=== PATIENT | male | born 1955 | race Caucasian/White ===

== ENCOUNTER 2025-01-05 03:05 | Emergency (ER) | payer MEDICARE, MEDICAID, SELFPAY ==
[2025-01-05 03:06] VITALS: BMI 22.9
[2025-01-05 03:09] VITALS: BP 177/96; PULSE 81; RESP 20; TEMP 37.1; O2SAT 97
--- NOTE | 2025-01-05 04:03 | PD.EDMALE ---
ED Male Genitalurinary RME/HPI General Chief complaint: Urogenital-Male Stated complaint: HASNT URINATED IN 6 HRS Time Seen by Provider: 01/05/25 03:38 Arrival date/time: 01/05/25 03:05 This is a case of 69-year-old male with history of BPH and urinary retention came in in the emergency room due to unable to urinate for 6 hours no other symptoms noted patient also needs medication refill of his Flomax for your BPH Limitations: no limitations Related Data Home Medications ?Medication ?Instructions ?Recorded ?Confirmed lisinopril 20 mg tablet 20 mg PO QDAY #0 tabs 09/20/15 06/19/22 aspirin 81 mg tablet,delayed 81 mg PO QDAY 11/13/19 06/19/22 release pravastatin 40 mg tablet 40 mg PO QDAY 11/13/19 06/19/22 (Pravachol) tamsulosin 0.4 mg capsule (Flomax) 0.4 mg PO HS 05/27/20 06/19/22 Previous Rx's ?Medication ?Instructions ?Recorded tamsulosin 0.4 mg capsule (Flomax) 0.4 mg PO QDAY #30 caps 01/05/25 Allergies Allergy/AdvReac Type Severity Reaction Status Date / Time No Known Allergies Allergy Verified 06/19/22 10:27 Review of Systems Review of Systems Systems Reviewed: All systems reviewed, normal except as documented Constitutional Constitutional: Reports system reviewed and no additional complaints, except as documented and Reports as per HPI Cardiovascular Cardiovascular: Reports system reviewed and no additional complaints, except as documented and Reports as per HPI Respiratory Respiratory: Reports system reviewed and no additional complaints, except as documented and Reports as per HPI Gastrointestinal Gastrointestinal: Reports system reviewed and no additional complaints, except as documented and Reports as per HPI Genitourinary Genitourinary: Reports system reviewed and no additional complaints, except as documented and Reports as per HPI Musculoskeletal Musculoskeletal: Reports system reviewed and no additional complaints, except as documented and Reports as per HPI Neurologic Neurologic: Reports system reviewed and no additional complaints, except as documented and Reports as per HPI Past Medical History Past Medical History NEUROLOGIC: Positive Neurological Disorders and Cerebrovascular Accident (2007); Negative Seizures CARDIAC: Positive Cardiac Disorders, Hypercholesterolemia and Hypertension; Negative Congestive Heart Failure RESPIRATORY: Negative Chronic Obstructive Pulmonary Disease (COPD) GASTROINTESTINAL: Negative Gastrointestinal Disorders GENITOURINARY: Positive Genitourinary Disorders, Kidney Stones and Benign Prostatic Hyperplasia; Negative Renal Disease MUSCULOSKELETAL: Negative Musculoskeletal Disorders ENDOCRINE: Negative Endocrine Disorders, Diabetes Mellitus Type 1 or Diabetes Mellitus Type 2 HEMATOLOGIC: Negative Blood Disorders OTHER HISTORY: Negative Hospitalization (stroke), Autoimmune Disease, Blood Transfusions, Blood Transfusion Reaction, Anesthesia Reactions, MRSA or Cancer Family History FAMILY HISTORY: Positive Family Cardiac Disorders (Father had heart attack); Negative Family Psychiatric Problems, Family Respiratory Disorders, Family Gastrointestinal Problems, Family Cancer, Family Surgery or Family Anesthesia Reaction Surgical History SURGICAL: Positive Abdominal Surgery; Negative Cardiac Surgery, Endocrine Surgery, Ear Surgery or Joint Replacement Social History SMOKING STATUS: Never smoker ED Exam General Limitations: Present no limitations General appearance: Present alert, in no apparent distress and other (Patient is awake alert oriented not in distress nontoxic looking well-hydrated 20) Head Head exam: Present atraumatic, normocephalic and normal inspection Eye Eye exam: Present normal appearance, PERRL, EOMI and other (PERRL EOM intact normal conjunctiva no papillae) ENT ENT exam: Present normal exam, normal oropharynx and mucous membranes moist Neck Neck exam: Present normal inspection, full ROM and trachea midline Chest Chest inspection: Present normal inspection and symmetric chest wall rise; Absent tenderness Respiratory Respiratory exam: Present normal lung sounds bilaterally; Absent respiratory distress, wheezes, stridor, accessory muscle use or prolonged expiratory phase Cardiovascular Cardiovascular exam: Present regular rate, normal rhythm and normal heart sounds; Absent bradycardia, tachycardia, irregular rhythm, systolic murmur or diastolic murmur Abdominal Exam Abdominal exam: Present soft, normal bowel sounds and other (Artery stent distended not tender); Absent distention, tenderness, guarding, rebound, rigidity, diminished bowel sounds, hyperactive bowel sounds, hypoactive bowel sounds, organomegaly, obturator sign, Roberts's sign, Rovsing's sign, tenderness at McBurney's Point, ascites or hernia Extremities Exam Extremities exam: Present normal inspection and full ROM Back Exam Back exam: Present normal inspection and full ROM Neurological Exam Neurological exam: Present alert, oriented X3, CN II-XII intact, normal gait and reflexes normal; Absent motor sensory deficit Psychiatric Psychiatric exam: Present normal affect and normal mood Skin Skin exam: Present warm, dry, intact and normal color Course Quality Measures none Orders Category Date Time Status Morales [Urinary Catheter] QS Care 01/05/25 03:58 Active Urinalysis Stat Lab 01/05/25 03:58 Ordered Vital Signs Vital signs: Vital Signs Temperature 98.8 F 01/05/25 03:09 Pulse Rate 81 01/05/25 03:09 Respiratory Rate 20 01/05/25 03:09 Blood Pressure 177/96 H 01/05/25 03:09 Pulse Oximetry (%) 97 01/05/25 03:09 Oxygen Delivery Method Room Air 01/05/25 03:09 Oxygen saturation is 97% in room Urogenital - Male MDM Narrative MDM Narrative:: This is a case of 69-year-old male with history of BPH and urinary retention came in in the emergency room due to unable to urinate for 6 hours no other symptoms noted patient also needs medication refill of his Flomax for your BPH physical examination patient is awake alert oriented not in distress nontoxic looking well-hydrated abdominal exam is benign nonsurgical no guarding no rebound no rigidity bladder is not distended not tender no CVA tenderness Morales catheter was inserted no complication noted urine output noted 600 with no blood Morales catheter care was advised. Medication refill of Flomax was prescribed for BPH he was advised to follow-up with PCP to see urologist for further evaluation and treatment of urinary retention and BPH for any recurrence persistent worsening symptoms or any emergent concern return precaution in the ER was advised Patient was discharged with comfortable condition walking with stable gait. Patient verbalized no further complains explained diagnosis and answered patient question. Patient is comfortable with the proposed management plan including the need to follow up with his/her primary care physician and any specialist if applicable Discussed patient for any urgent condition or worsening sx, He/She needed to go to emergency room immediately or call 911. Patient acknowledge the responsibility to follow up as instructed and to monitor her/his symptoms. For any persistence of the symptoms for more than 3-5 days return precaution advised. Discussed the result of the test and was given printed discharge instruction Patient data External records reviewed:: [facility] previous records Clinical information provided by:: patient Social determinants that could affect healthcare access:: none Patient has the following chronic illnesses:: None How is presenting disease/condition affected by chronic disease/condition?: no chronic disease Evaluation data The following diagnostics were reviewed and interpreted by me:: lab results and radiology exam(s) Lab and/or radiology exams considered but not ordered:: Reviewed Interpretation Summary: Reviewed Medications / Prescriptions Medications or Prescriptions considered but not ordered:: Given Medication administrations:: Given Consultations Consultation(s) initiated? (list below): No Diagnosis Urogenital Male Differential Diagnosis: acute retention of urine and other (BPH) Most likely diagnosis given after review of the tests above:: Urinary retention BPH Admission Indicated Admission indicated?: not indicated Explain why admission is indicated or not indicated:: Not indicated Admission Request Was there a request for admission?: No Admission Attestation Admission request attestation: Not indicated Disposition Plan Disposition Plan: Discharge Discharge Attestation Discharge Attestation: The patient and all family members were given an opportunity to ask questions and understood the discharge instructions. Discharge instructions specifically effects, indications for sooner follow up or return to the emergency department, and the expected course of current diagnosis. Patient condition: Stable Discharge Plan Plan Patient Disposition: HOME (Self Care) Patient condition on transfer: Stable Prescriptions/Referrals Prescriptions/Med Rec: New tamsulosin [Flomax] 0.4 mg capsule 0.4 mg PO QDAY Qty: 30 0RF No Action lisinopril 20 MG tablet 20 mg PO QDAY Qty: 0 pravastatin [Pravachol] 40 mg Tablet 40 mg PO QDAY aspirin 81 mg Tablet,Delayed Release (Dr/Ec) 81 mg PO QDAY tamsulosin [Flomax] 0.4 mg Capsule 0.4 mg PO HS Problem List Clinical Impression: Urinary retention, BPH (benign prostatic hyperplasia), Medication refill Patient/Caregiver Discharge Instructions Education Materials: ED BPH (Enlarged Prostate), ED Urinary Retention, Male Additional Instructions: Up with your primary care physician in 2 days for reevaluation and to be referred to urologist for further evaluation and treatment of urinary retention and BPH recurrence persistent worsening symptoms or any emergent concern call 911 or go to the nearest emergency room take your medication as directed keep hydrated Morales catheter care is advised Print Language: Bel[place]ian Stand Alone Forms: Julia Award Info., Patient Portal Info Letter 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 Felix Hammond
[2025-01-05 06:01] LABS: Collection Type, Urine Catheter; Squamous Epithelial Cell,Urine 0 /hpf (0-5)
[2025-01-05 06:26] LABS: Bacteria,Urine Rare; Bilirubin,Urine Negative (Negative); Blood,Urine 3+ (Negative); Clarity,Urine Clear (Clear/Hazy); Color,Urine Lt-Yellow (Lt Yel-Yel); Glucose, Urine Negative (Negative); Ketones,Urine Negative (Negative); Leukocyte Esterase,Urine Negative (Negative); Nitrite,Urine Negative (Negative); PH,Urine 6.0 (5.0-7.0); Protein,Urine Negative (Neg - Trace); RBC,Urine 262 /hpf (0-3); Specific Gravity,Urine 1.012 (1.001-1.035); Urobilinogen,Urine Negative mg/dL (0.0-1.0); WBC,Urine < 1 /hpf (0-5)
== END 2025-01-05 06:50 | disposition home or self-care (01) ==
LOC: SERX 04:30
PROVIDERS: Nurse Practitioner Family; Emergency Provider Emergency Medicine; PCP Physician Assistant Medical
DX: N40.1 Benign prostatic hyperplasia with lower urinary tract symptoms (principal); R33.8 Other retention of urine
CPT/HCPCS: 51702; 81001; 99282; A4314

== ENCOUNTER → 2025-02-19 | Outpatient (CLI) | payer MEDICARE, MEDICAID, SELFPAY ==
[2025-02-19 14:37] LABS: Prostate Specific Antigen 14.77 ng/mL (0-4.00)
== END | disposition home or self-care (01) ==
LOC: COPL 12:33
PROVIDERS: PCP Family Medicine; Referring Provider Surgery; Visit Provider Surgery
DX: N40.1 Benign prostatic hyperplasia with lower urinary tract symptoms (principal)
CPT/HCPCS: 36415; 84153